=== PATIENT | male | born 1995 | race Caucasian/White ===

== ENCOUNTER 2025-05-22 08:28 | Emergency (ER) | payer OTHER, SELFPAY ==
--- NOTE | 2025-05-22 08:55 | ED.GENMED ---
History of Present Illness
General
Chief Complaint: Abdominal Pain
Source: patient
Time Seen by Provider: 05/22/25 08:47
History of Present Illness
History of Present Illness:
30-year-old male with no significant past medical history presenting to the emergency department for evaluation after awakening this morning around 6 AM with severe left upper and epigastric abdominal pain described to be constant, sharp,
nonradiating, currently feels more diffuse abdomen, unrelieved after taking Tylenol/Motrin and Tylenol with codeine which she states he has been taking over the last few days anyway due to a dental procedure done last Tuesday. Patient was not given
any antibiotics following the dental procedure. He denies any history of similar abdominal pain in the past. There is associated nausea but no vomiting, no bowel changes or urinary symptoms associated. Patient is also denying any chest pain,
shortness of breath, fevers or recent illnesses, back or flank pain. Social history was noncontributory for any tobacco or EtOH use. Surgical history also noncontributory.
Past History
Past History
ED Past Medical History: None
ED Past Surgical History: None
Social History
Tobacco: Non-smoker
Alcohol: None
Drug: None
Personal: Single
Living: with family
Employment: Employed
Review of Systems
Review of Systems
All Other Systems: ROS reviewed and negative except as documented in HPI and ROS
Phy Exam
Physical Exam
Physical Exam:
GENERAL: Alert , appears very uncomfortable, unable to sit still, constantly moaning
EYE: clear conjunctiva b/l
HEAD: NCAT
ENT: mmm.
CARDIAC: Regular rate and rhythm .
LUNGS: Clear breath sounds bilaterally, no acute respiratory distress, no wheezes/rales/rhonchi
ABDOMEN: Firm, generally tender but seemingly more tender within the epigastrium and periumbilical region , no r/g, no cvat
NEUROLOGICAL: Alert and oriented
SKIN: Warm and dry, skin intact.
MUSCULOSKELETAL: No edema, well perfused.
PSYCH: Normal and appropriate interaction.
Scores
Heart Failure Risk
Heart Failure Risk Score: Not Applicable
Heart Score for Chest Pain Patients
STEMI patient?: Not applicable
Withdrawal Assessment of Alcohol
Withdrawal Assessment Completed?: Not applicable
Course
Orders/Labs/Results
Orders:
Orders
05/22/25 08:29
EKG [Electrocardiogram (*1)] Urgent
Reason for Study: Abdominal Pain
05/22/25 08:30
EKG- Treatment ONCE
05/22/25 08:54
CT Abd/pelvis W Iv Cont Urgent
Comment:
Reason For Exam: severe epigastric pain
0.9% Sodium Chloride 1000 ml [Nss] 1,000 ml IV BOLUS
Ketorolac [Toradol] 30 mg IV NOW STA
Ondansetron Injectable [Zofran] 4 mg IV NOW STA
05/22/25 09:02
Complete Blood Count/With Diff Urgent
Comprehensive Metabolic Panel Urgent
Lipase Urgent
05/22/25 09:22
Morphine Sulfate 4 mg IV NOW STA
05/22/25 10:26
Troponin I Stat
05/22/25 11:17
US Abdomen Limited Urgent
Comment:
Reason For Exam: gallbladder, elevated LFT, pain
Abnormal Lab Results
05/22/25
09:02
Absolute Monos (auto) 0.7 H 10^3/uL
(0.1-0.6)
Chloride 110 H mmol/L
(98-107)
BUN 23 H mg/dl
(9-20)
Glucose 131 H mg/dl
(70-99)
Total Bilirubin 1.4 H mg/dl
(0.2-1.3)
AST 70 H U/L
(17-59)
ALT 73 H U/L
(0-50)
Alkaline Phosphatase 21 L U/L
(38-126)
05/22/25 09:02
05/22/25 09:02
Vital Signs
Initial and Last Documented VS:
Initial Vital Signs
Temp Pulse Resp
98.8 F 61 24
05/22/25 08:40 05/22/25 08:40 05/22/25 08:40
Last Documented Vital Signs
Temp Pulse Resp BP Pulse Ox
98.8 F 71 16 121/74 99
05/22/25 08:40 05/22/25 12:43 05/22/25 12:43 05/22/25 12:43 05/22/25 12:43
MDM/Problems Addressed
Differential Diagnosis Includes:
- Gastritis/duodenitis
- Peptic ulcer disease
- GERD
- Pancreatitis
- Appendicitis
- Biliary colic/cholecystitis
- Given age and lack of medical history I have less suspicion for atypical ACS presentation
- Aortic dissection/AAA
MDM/Problems Addressed:
30-year-old male presenting to the emergency department for evaluation of a sudden onset of epigastric abdominal pain upon awakening this morning, no relief with medications for which he has been taking due to recent dental extraction. Given
patient has been taking multiple doses of these medications certainly possible side effect including gastritis/peptic ulcer disease is possible. He is constantly moaning appears quite uncomfortable however he is hemodynamically stable so my
suspicion for any significant vascular etiology is less likely. Patient denies any risk factors for pancreatitis. Other surgical pathologies considered. Given the degree of patient's presenting pain will obtain CT scan to further evaluate. Labs
ordered. Pain control with Toradol and nausea relief with Zofran.
*Radiology
Radiology exam reviewed: radiology read reviewed
*Pulse Oximetry
SaO2: 96
Patient hypoxic: no
*Critical Care Note
Total Time (30-74mins, 75-104mins- exclusive of procedures): Not Applicable
Comment
Comment:
Following first administration of pain medication patient with no relief so he was given an additional 4 mg of morphine which seemed to help significantly. Lab findings did reveal slight elevation of LFTs which could be related to patient's Tylenol
usage over the last week. CT scan pending. Will consider ultrasound if CT does not yield any acute pathologies. Patient does note that he was told by his dentist that he can take pain medicine up to 5 times per day and had been taking
approximately 3600 mg of anti-inflammatories and around the same dosage of Tylenol. I did discuss with the patient that this was likely overmedicating and that I would only recommend 600 to 800 mg of ibuprofen 3 times a day and up to 1 g of Tylenol
3 times per day but given these medications may be the cause of patient's pain I did advise he stop taking these medications.
Patient Management
Social determinants of health affecting care: Living situation and Strong social support
Escalation/DeEscalation of care consider admission/obs:
Patient CT shows large volume stool however no other acute pathologies found. Ultrasound ordered. Pain remains under control with the IV morphine. Ultrasound ultimately did not show any acute pathologies and at this time I do think it is
reasonable for patient to be discharged home. I did discuss the possibility of taking too much of the NSAIDs and Tylenol at the request of his dentist may be the cause of pain and recommended he discontinue use of this. Given the location there is
a possibility of gastritis/peptic ulcer disease/duodenitis so will prescribe 1 month supply of Protonix. Recommend outpatient follow-up with primary care rider. Information for GI provided if symptoms continue to persist.
ED Attending Note
-
Portions of this chart may have been created with voice recognition software.� Occasional wrong word or��sound alike� substitutions may have occurred due to the inherent limitations of voice recognition software.
Discharge Plan
Departure
Patient Disposition: Home (Routine Discharge)
Date of Disposition: 05/22/25
Time of Disposition: 12:29
Patient with high blood pressure during this ER visit?: No
Discharge Problem:
Abdominal pain
Instructions: Abdominal Pain
Prescriptions:
New
pantoprazole [Protonix] 40 mg tablet,delayed release (DR/EC)
40 mg PO DAILY Qty: 30 0RF
Referrals:
Luigi Hines MD [Active, Gastroenterology]
NONE,* [Family Provider, Internal Medicine]
Interventions
Interventions:
*Risk Screen - Suicide Last Done: 05/22/25 08:40
*General Assessment Last Done: 05/22/25 08:40
*Neglect/Abuse Screening Last Done: 05/22/25 08:40
*ED- Fall Risk Assessment Last Done: 05/22/25 08:52
*ED COVID-19 Vaccine History Last Done: 05/22/25 08:52
*Nursing Disposition Last Done: 05/22/25 13:27
JR-Ddzqkd-Sfstkehppr Assessment Last Done: 05/22/25 08:51
Discharge Date and Time
Discharge Date/Time: 05/22/25 13:28
Print Language: BAHAMIAN
[2025-05-22] MEDS: ZOFRAN 4 MG IV (08:58)
[2025-05-22] MEDS: NSS 1000 IV (08:58)
[2025-05-22] MEDS: TORADOL 30 MG IV (08:59)
[2025-05-22 09:05] VITALS: BMI 27.4
[2025-05-22 09:14] LABS: % Basophils 0.6 % (0-2); % Eosinophils 4.1 % (0-6); % Immature Granulocytes 0.1 % (0-0.5); % Lymphocytes 41.6 % (20.5-51.1); % Monocytes 9.1 % (1.7-9.3); % Neutrophils 44.5 % (42.2-75.2); Absolute Basophils 0.1 10^3/uL (0-0.2); Absolute Eosinophils 0.3 10^3/uL (0-0.7); Absolute Lymphocytes 3.3 10^3/uL (1.2-3.4); Absolute Monocytes 0.7 10^3/uL (0.1-0.6); Absolute Neutrophils 3.6 10^3/uL (1.4-6.5); Hematocrit 44.7 % (39.0-52.0); Hemoglobin 15.5 g/dL (13.0-18.0); Mean Corp Hgb Conc. 34.7 g/dL (33.0-37.0); Mean Corpuscular Hgb 29.2 pg (27.0-31.0); Mean Corpuscular Volume 84.2 fL (80.0-94.0); Mean Platelet Volume 8.7 fL (7.4-10.4); Nucleated Red Blood Cells % 0 % (-); Platelet Count 245 10^3/uL (130-400); Red Blood Cell Count 5.31 10^6/uL (4.70-6.10); Red Cell Dist. Width 12.4 % (11.5-14.5)
[2025-05-22] MEDS: MORPHINE SULFATE 4 MG IV (09:26)
[2025-05-22 09:40] LABS: ALT (SGPT) 73 U/L (0-50); AST (SGOT) 70 U/L (17-59); Albumin 4.8 g/dl (3.5-5.0); Alkaline Phosphatase 21 U/L (38-126); Blood Urea Nitrogen 23 mg/dl (9-20); Calcium 9.3 mg/dl (8.4-10.2); Carbon Dioxide 28 mmol/L (22-30); Chloride 110 mmol/L (98-107); Estimated Creatinine Clearance 103 ml/min; Glucose 131 mg/dl (70-99); Potassium 4.6 mmol/L (3.5-5.1); Sodium 145 mmol/L (135-145); Total Bilirubin 1.4 mg/dl (0.2-1.3); Total Protein 7.7 g/dl (6.3-8.2); eGFR > 60.00
[2025-05-22 10:12] LABS: Lipase 49 U/L (23-300)
[2025-05-22 10:25] VITALS: BP 117/66
[2025-05-22 10:59] LABS: Troponin I < 0.012 ng/ml
[2025-05-22 12:43] VITALS: BP 121/74
== END 2025-05-22 13:28 | disposition home or self-care (01) ==
LOC: EMR 08:28
PROVIDERS: Physician Assistant Medical; EMERGENCY PHYSICIAN Emergency Medicine
DX: R10.84 Generalized abdominal pain (principal); R11.0 Nausea; R79.89 Other specified abnormal findings of blood chemistry
CPT/HCPCS: 99284; 96374; 96375; 96361; 74177; 76705; 80053; 83690; 84484; 85025; 93005; Q9967